=== PATIENT | female | born 1985 | race Two or more races ===

== ENCOUNTER 2025-05-17 18:25 | Emergency (ER) | payer SELFPAY ==
[~2025-05-17] VITALS: Ht 167.6 cm; Wt 70.3 kg
[2025-05-17] MEDS ORDERED: ACETAMINOPHEN 325 MG TABLET ONE (19:13)
[2025-05-17] MEDS: ACETAMINOPHEN 325 MG TABLET PO ONE (19:17)
[2025-05-17 19:20] LABS: BASOPHILS # (AUTO) 0.1 K/uL (0.0-0.2); BASOPHILS % (AUTO) 1.1 % (0.0-2.0); EOSINOPHILS # (AUTO) 0.1 K/uL (0.0-0.7); EOSINOPHILS % (AUTO) 1.8 % (0.0-6.0); HEMATOCRIT 42 % (33-45); HEMOGLOBIN 13.9 g/dL (11.5-14.8); LYMPHOCYTES # (AUTO) 1.6 K/uL (0.8-4.8); LYMPHOCYTES % (AUTO) 24.8 % (20.0-44.0); MEAN CORPUSCULAR HEMOGLOBIN 32 PG (26.0-33.0); MEAN CORPUSCULAR HGB CONC 33 g/dl (31.0-36.0); MEAN CORPUSCULAR VOLUME 94 fL (82-100); MONOCYTES # (AUTO) 0.7 K/uL (0.1-1.30); MONOCYTES % (AUTO) 10.5 % (2.0-12.0); NEUTROPHILS # (AUTO) 4.1 K/uL (1.8-8.9); NEUTROPHILS % (AUTO) 61.8 % (43.0-81.0); PLATELET COUNT (AUTO) 293 K/uL (150-450); RED BLOOD CELL COUNT(AUTO) 4.41 MIL/uL (4.0-5.2); RED CELL DISTRIBUTION WIDTH 13.3 % (11.5-15.0); WHITE BLOOD COUNT (AUTO) 6.6 K/uL (4.3-11.0)
[2025-05-17 19:28] LABS: CALCIUM, SERUM 9.1 mg/dL (8.5-10.1); POTASSIUM 3.9 mmol/L (3.5-5.1)
[2025-05-17 19:39] LABS: ALBUMIN 3.6 g/dL (3.4-5.0); BILIRUBIN,TOTAL 0.3 mg/dL (0.2-1.0); TOTAL PROTEIN, SERUM 7.1 g/dL (6.4-8.2)
[2025-05-17] MEDS ORDERED: CT SWABBABLE VALVE TRANS SET 1 EA INFUS.SET MC ONE (20:21)
[2025-05-17] MEDS ORDERED: IOHEXOL-300 100 ML VIAL IV ONE (20:21)
[2025-05-17] MEDS ORDERED: KETOROLAC TROMETHAMINE INJ 30 MG/ML VIAL ONE (21:07)
[2025-05-17] MEDS ORDERED: ACET-2030 PO (21:14)
[2025-05-17] MEDS ORDERED: IBUP-1957 PO (21:14)
[2025-05-17] MEDS: KETOROLAC TROMETHAMINE INJ 30 MG/ML VIAL IM ONE (21:17)
[2025-05-17 21:39] VITALS: BP 107/73; TEMP 98.2; O2SAT 97
== END 2025-05-17 21:42 | disposition home or self-care (01) ==
LOC: ER 18:27
DX: S39.81XA Other specified injuries of abdomen, initial encounter (principal); R10.2 Pelvic and perineal pain; Z79.1 Long term (current) use of non-steroidal anti-inflammatories (NSAID); V09.9XXA Pedestrian injured in unspecified transport accident, initial encounter; Y93.89 Activity, other specified; Y92.410 Unspecified street and highway as the place of occurrence of the external cause; Y99.9 Unspecified external cause status
CPT/HCPCS: 99285; 74177; 96372; 85025; 36415; 80053; 84702; J1885; Q9967